=== PATIENT | male | born 1985 | race American Indian/Alaskan Native ===

== ENCOUNTER 2016-12-16 14:27 | Emergency (ER) | payer MEDICAID ==
[2016-12-16] MEDS ORDERED: EPINEPHrine 1 MG/ML SDV IM ONE (14:33)
[2016-12-16] MEDS ORDERED: diphenhydrAMINE 50 MG/ML SDV IVPUSH ONE ×2 (14:33→14:53)
--- NOTE | 2016-12-16 14:33 | EDM.PDOC ---
ED HPI GENERAL MEDICAL PROBLEM - General Chief Complaint: Allergic Reaction Stated Complaint: STUNG BY KEDAR PICKETT, [id number] Time Seen by Provider: 12/16/16 14:33 Source of Information: Reports: Patient, RN, RN Notes Reviewed History Limitations: Reports: No Limitations - History of Present Illness INITIAL COMMENTS - FREE TEXT/NARRATIVE: Arrives to ER by POV with c/o allergic reaction to hornet sting. Pt reports he was stung just [employer] once in the Rt arm and once in the Rt chest. 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 Pt states he rapidly began to develop hives around the stings, and feels a little tightness in his throat. Onset: Today, Sudden Duration: Getting Worse Location: Reports: Chest, Upper Extremity, Right Quality: Reports: Ache, Burning Severity: Moderate Improves with: Reports: None Worsens with: Reports: None Associated Symptoms: Reports: No Other Symptoms - Related Data Allergies Allergy/AdvReac Type Severity Reaction Status Date / Time haloperidol [From Haldol] Allergy Other Verified 12/16/16 14:34 Home Meds: Home Meds Buprenorphine HCl/Naloxone HCl [Suboxone 4 mg-1 mg Sl Film] 1 each SL TID [History] Past Medical History Psychiatric History: Reports: Addiction - History Comment History Comment: allergic reaction to bee stings Social & Family History - Family History Family Medical History: Noncontributory - Living Situation & Occupation Living situation: Reports: with Family ED ROS ALLERGIC REACTION - Review of Systems Review Of Systems: ROS reveals no pertinent complaints other than HPI. ED EXAM GENERAL NO PERIP PULSE - Physical Exam Exam: See Below Exam Limited By: No Limitations General Appearance: Alert, WD/WN, No Apparent Distress, Anxious Eye Exam: Bilateral Eye: Normal Inspection Ears: Normal External Exam, Normal Canal, Hearing Grossly Normal, Normal TMs Nose: Normal Inspection, Normal Mucosa, No Blood Throat/Mouth: Normal Inspection, Normal Lips, Normal Teeth, Normal Gums, Normal Oropharynx, Normal Voice, No Airway Compromise Head: Atraumatic, Normocephalic Neck: Normal Inspection, Supple, Non-Tender, Full Range of Motion Respiratory/Chest: No Respiratory Distress, Lungs Clear, Normal Breath Sounds, No Accessory Muscle Use, Chest Non-Tender Cardiovascular: Normal Peripheral Pulses, Regular Rate, Rhythm, No Edema, No Gallop, No JVD, No Murmur, No Rub GI/Abdominal: Normal Bowel Sounds, Soft, Non-Tender, No Organomegaly, No Distention, No Abnormal Bruit, No Mass Back Exam: Normal Inspection Extremities: Normal Range of Motion, No Pedal Edema, Normal Capillary Refill Neurological: Alert, Oriented, CN II-XII Intact, Normal Cognition, Normal Gait, No Motor/Sensory Deficits Psychiatric: Anxious Skin Exam: Warm, Dry, Intact, Erythema (insect sting to Rt arm and Rt upper chest with peripheral urticaria and tenderness) Course - Orders/Labs/Meds Orders: Active Orders 24 hr Category Date Time Status Peripheral IV Care [RC] . DIRECTED Care 12/16/16 14:34 Active RT Aerosol Therapy [RC] ASDIRECTED Care 12/16/16 14:34 Active Sodium Chloride 0.9% [Saline Flush] Med 12/16/16 14:34 Active 10 ml FLUSH ASDIRECTED PRN Peripheral IV Insertion Adult [OM.PC] Stat Oth 12/16/16 14:34 Ordered Medication Orders Sodium Chloride (Saline Flush) 10 ml FLUSH ASDIRECTED PRN PRN Reason: Keep Vein Open Last Admin: 12/16/16 14:51 Dose: 10 ml Meds: Medications Generic Name Dose Route Start Last Admin Trade Name Freq PRN Reason Stop Dose Admin Sodium Chloride 10 ml 12/16/16 14:34 12/16/16 14:51 Saline Flush FLUSH 10 ml ASDIRECTED PRN Administration Keep Vein Open Discontinued Medications Generic Name Dose Route Start Last Admin Trade Name Freq PRN Reason Stop Dose Admin Albuterol 2.5 mg 12/16/16 14:34 12/16/16 14:49 Proventil Neb Soln NEB 12/16/16 14:35 2.5 mg ONETIME ONE Administration Diphenhydramine HCl 50 mg 12/16/16 14:33 12/16/16 14:54 Benadryl IVPUSH 12/16/16 14:34 Not Given ONETIME ONE Diphenhydramine HCl 25 mg 12/16/16 14:53 12/16/16 14:54 Benadryl IVPUSH 12/16/16 14:54 25 mg ONETIME ONE Administration Epinephrine HCl 0.5 mg 12/16/16 14:33 12/16/16 14:44 Adrenalin 1:1000 IM 12/16/16 14:34 0.5 mg ONETIME ONE Administration Sodium Chloride 1,000 mls @ 999 mls/hr 12/16/16 14:34 12/16/16 14:46 Normal Saline IV 12/16/16 15:34 999 mls/hr .BOLUS ONE Administration Lorazepam 1 mg 12/16/16 14:37 12/16/16 14:59 Ativan IVPUSH 12/16/16 14:38 1 mg ONETIME ONE Administration Methylprednisolone Sodium Succinate 125 mg 12/16/16 14:34 12/16/16 14:49 Solu-Medrol IVPUSH 12/16/16 14:35 125 mg ONETIME ONE Administration - Re-Assessments/Exams Free Text/Narrative Re-Assessment/Exam: 12/16/16 15:42 Urticaria resolved following tx in ER. Departure - Departure Time of Disposition: 15:43 Disposition: Home, Self-Care 01 Condition: Good Clinical Impression: Sting from hornet, wasp, or bee Qualifiers: Encounter type: initial encounter Injury intent: accidental or unintentional Qualified Code(s): T63.451A - Toxic effect of venom of hornets, accidental ( unintentional), initial encounter; T63.441A - Toxic effect of venom of bees, accidental (unintentional), initial encounter; T63.461A - Toxic effect of venom of wasps, accidental (unintentional), initial encounter Anaphylactic reaction to wasp sting Qualifiers: Encounter type: initial encounter Injury intent: accidental or unintentional Qualified Code(s): T63.461A - Toxic effect of venom of wasps, accidental ( unintentional), initial encounter - Discharge Information Instructions: Bee, Wasp, or Hornet Sting Forms: ED Department Discharge Additional Instructions: Rx: Epi-Pen Follow up in clinic if needed. Return to ER if worse at any time. - My Orders Last 24 Hours: My Active Orders 12/16/16 14:34 Peripheral IV Care [RC] . DIRECTED RT Aerosol Therapy [RC] ASDIRECTED Sodium Chloride 0.9% [Saline Flush] 10 ml FLUSH ASDIRECTED PRN Peripheral IV Insertion Adult [OM.PC] Stat - Assessment/Plan Last 24 Hours: My Active Orders 12/16/16 14:34 Peripheral IV Care [RC] . DIRECTED RT Aerosol Therapy [RC] ASDIRECTED Sodium Chloride 0.9% [Saline Flush] 10 ml FLUSH ASDIRECTED PRN Peripheral IV Insertion Adult [OM.PC] Stat
[2016-12-16] MEDS ORDERED: Sodium Chloride 0.9% 10 ML Syringe FLUSH PRN (14:34)
[2016-12-16] MEDS ORDERED: Sodium Chloride 0.9% 1,000 ML IV ONE (14:34)
[2016-12-16] MEDS ORDERED: Albuterol 0.083% 2.5 MG/3 ML Neb Soln NEB ONE (14:34)
[2016-12-16] MEDS ORDERED: methylPREDNISolone Sodium Succinate 125 MG/2 ML SDV IVPUSH ONE (14:34)
[2016-12-16] MEDS ORDERED: LORazepam 2 MG/ML Syringe IVPUSH ONE (14:37)
[2016-12-16 15:57] VITALS: BP 124/66
== END 2016-12-16 15:59 | disposition home or self-care (01) ==
LOC: DL.ED 14:27
DX: T63.451A Toxic effect of venom of hornets, accidental (unintentional), initial encounter (principal); T63.441A Toxic effect of venom of bees, accidental (unintentional), initial encounter; T63.461A Toxic effect of venom of wasps, accidental (unintentional), initial encounter; Z88.8 Allergy status to other drugs, medicaments and biological substances
CPT/HCPCS: 94640; 96361; 96372; 96374; 96375; 99283; J0171; J1200; J2060; J2930; J7030; J7050; J7620

== ENCOUNTER 2017-07-22 22:24 | Emergency (ER) | payer MEDICAID ==
[2017-07-22] MEDS ORDERED: Lidocaine 2% Viscous Solution 15 ML Cup PO ONE (22:25)
[2017-07-22] MEDS ORDERED: Cephalexin 500 MG Cap PO ONE (22:25)
--- NOTE | 2017-07-22 22:26 | EDM.PDOC ---
ED HPI GENERAL MEDICAL PROBLEM - General Time Seen by Provider: 07/22/17 22:30 Source of Information: Reports: Patient History Limitations: Reports: No Limitations - History of Present Illness INITIAL COMMENTS - FREE TEXT/NARRATIVE: c/o toothache bottom left for 2 weeks, worse today after exposure to cold air. Has been trying Jose Daniel for discomfort Oral/Mouth Pain Score (Numeric/FACES): 9 - Related Data Allergies Allergy/AdvReac Type Severity Reaction Status Date / Time haloperidol [From Haldol] Allergy Other Verified 07/22/17 22:34 Home Meds: Home Meds Buprenorphine HCl/Naloxone HCl [Suboxone 4 mg-1 mg Sl Film] 1 each SL TID [History] Past Medical History Psychiatric History: Reports: Addiction - Infectious Disease History Infectious Disease History: Reports: Hepatitis C - History Comment History Comment: allergic reaction to bee stings Social & Family History - Family History Family Medical History: Noncontributory - Tobacco Use Smoking Status *Q: Current Every Day Smoker Years of Tobacco use: 15 Packs/Tins Daily: 0.2 - Recreational Drug Use Recreational Drug Use: Yes Drug Use in Last 12 Months: Yes Recreational Drug Type: Reports: Methamphetamine Recreational Drug Use Frequency: Not Used In Over 3 Months - Living Situation & Occupation Living situation: Reports: with Family ED ROS ENT - Review of Systems Review Of Systems: ROS reveals no pertinent complaints other than HPI. ED EXAM, ENT - Physical Exam Exam: See Below Exam Limited By: No Limitations General Appearance: Alert, Mild Distress Eye Exam: Bilateral Eye: EOMI Ears: Normal External Exam, Normal Canal, Normal TMs Nose: Normal Inspection Mouth/Throat: Dental Abcess, Dental Pain, Dental Tenderness, Other (poor dentation, large decay lower left posterior molar,) Head: Atraumatic, Normocephalic Neck: Lymphadenopathy (L) Respiratory/Chest: No Respiratory Distress, Lungs Clear, Normal Breath Sounds Cardiovascular: Normal Peripheral Pulses, Regular Rate, Rhythm Neurological: Alert, Oriented, Normal Cognition Psychiatric: Anxious Skin: Warm, Dry, Intact, Normal Color Course - Vital Signs Last Recorded V/S: Last Vital Signs Temp 99.4 F 07/22/17 22:32 Pulse 93 07/22/17 22:32 Resp 14 07/22/17 22:32 BP 137/81 07/22/17 22:32 Pulse Ox 99 07/22/17 22:32 Departure - Departure Time of Disposition: 22:46 Disposition: Home, Self-Care 01 Condition: Good Clinical Impression: Dental abscess, Dental caries - Discharge Information Instructions: Dental Abscess, [id number] Additional Instructions: viscous lidocaine apply 4 times daily as needed for dental pain keflex 500mg 4 times daily for one week follow up with dentist in am avoid extreme temperatures with foods or kiquids chew on opposite side may try clove oil to area to relieve dental pain
[2017-07-22 22:34] VITALS: BP 137/81
[2017-07-22] MEDS ORDERED: Cephalexin 500 MG Cap ONE (22:45)
[2017-07-22] MEDS ORDERED: Lidocaine 2% Viscous Solution 15 ML Cup ONE (22:45)
== END 2017-07-22 22:56 | disposition home or self-care (01) ==
LOC: DL.ED 22:24
DX: K02.9 Dental caries, unspecified (principal); K04.7 Periapical abscess without sinus; F17.210 Nicotine dependence, cigarettes, uncomplicated; Z88.5 Allergy status to narcotic agent
CPT/HCPCS: 99282; A9270

== ENCOUNTER 2019-08-27 01:32 | Emergency (ER) | payer MEDICAID ==
[2019-08-27 02:11] VITALS: BP 134/75; PULSE 99
--- NOTE | 2019-08-27 05:02 | EDM.PDOC ---
ED HPI GENERAL MEDICAL PROBLEM - General Chief Complaint: Genitourinary Problem Stated Complaint: STOMACH PAIN Time Seen by Provider: 08/27/19 02:00 Source of Information: Reports: Patient History Limitations: Reports: No Limitations - History of Present Illness INITIAL COMMENTS - FREE TEXT/NARRATIVE: ED with c/o difficulty urinating for past 2 weeks, denies pain. No fever or chills, states feels like something moving in stomach and in back. No pain. No nausea or vomiting. - Related Data Allergies Allergy/AdvReac Type Severity Reaction Status Date / Time haloperidol [From Haldol] Allergy Other Verified 07/22/17 22:34 Home Meds: Home Meds Buprenorphine HCl/Naloxone HCl [Suboxone 4 mg-1 mg Sl Film] 1 each SL TID [History] Past Medical History - Past Health History Medical/Surgical History: Denies Medical/Surgical History Psychiatric History: Reports: Addiction - Infectious Disease History Infectious Disease History: Reports: Hepatitis C - History Comment History Comment: allergic reaction to bee stings Social & Family History - Family History Family Medical History: Noncontributory - Caffeine Use Caffeine Use: Reports: Energy Drinks - Living Situation & Occupation Living situation: Reports: with Family ED ROS GENERAL - Review of Systems Review Of Systems: Comprehensive ROS is negative, except as noted in HPI. ED EXAM, GI/ABD - Physical Exam Exam: See Below Exam Limited By: No Limitations General Appearance: Alert, No Apparent Distress Eyes: Bilateral: EOMI Ears: Normal External Exam, Normal TMs Nose: Normal Inspection Throat/Mouth: Normal Inspection Head: Atraumatic, Normocephalic, Sinus Tenderness Respiratory/Chest: No Respiratory Distress, Lungs Clear, Normal Breath Sounds Cardiovascular: Regular Rate, Rhythm GI/Abdominal Exam: Normal Bowel Sounds, Soft, Non-Tender Back Exam: Full Range of Motion. No: CVA Tenderness (L), CVA Tenderness (R) Extremities: Normal Inspection Neurological: Alert, Oriented, Normal Cognition Psychiatric: Normal Affect Skin Exam: Warm, Dry, Intact, Normal Color Course - Vital Signs Last Recorded V/S: Last Vital Signs Temp 97.8 F 08/27/19 02:00 Pulse 99 08/27/19 02:00 Resp 19 08/27/19 02:00 BP 134/75 08/27/19 02:00 Pulse Ox 98 08/27/19 02:00 - Re-Assessments/Exams Free Text/Narrative Re-Assessment/Exam: 08/27/19 05:11 States sx feel better now, requesting to leave declines labs . Departure - Departure Time of Disposition: 02:15 Disposition: Against Medical Advice 07 Condition: Undetermined Clinical Impression: Urinary hesitancy - Discharge Information *PRESCRIPTION DRUG MONITORING PROGRAM REVIEWED*: No *COPY OF PRESCRIPTION DRUG MONITORING REPORT IN PATIENT KEVIN: No Referrals: PCP,Unobtain [Primary Care Provider] - Forms: ED Department Discharge Sepsis Event Note - Evaluation Sepsis Screening Result: No Definite Risk - Focused Exam Vital Signs: Vital Signs Temp Pulse Resp BP Pulse Ox 08/27/19 02:00 97.8 F 99 19 134/75 98 Date Exam was Performed: 08/27/19 Time Exam was Performed: 04:52
== END 2019-08-27 02:09 | disposition left against medical advice (07) ==
LOC: DL.ED 01:32
DX: R39.11 Hesitancy of micturition (principal); Z88.8 Allergy status to other drugs, medicaments and biological substances
CPT/HCPCS: 99283

== ENCOUNTER 2019-09-06 01:01 | Emergency (ER) | payer MEDICAID ==
[2019-09-06 01:07] VITALS: BP 137/90; PULSE 111
[2019-09-06] MEDS ORDERED: Clindamycin HCl 150 MG Cap PO ONE (01:12)
[2019-09-06] MEDS ORDERED: Lidocaine 2% Viscous Solution 15 ML Cup PO ONE (01:12)
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
== END 2019-09-06 01:28 | disposition home or self-care (01) ==
LOC: DL.ED 01:01
DX: K08.409 Partial loss of teeth, unspecified cause, unspecified class (principal); Z88.8 Allergy status to other drugs, medicaments and biological substances
CPT/HCPCS: 99282; A9270

== ENCOUNTER 2020-03-05 12:36 | Emergency (ER) | payer MEDICAID ==
[2020-03-05 13:08] VITALS: BP 154/103; PULSE 110
== END 2020-03-05 13:51 | disposition left against medical advice (07) ==
LOC: DL.ED 12:36
DX: Z53.21 Procedure and treatment not carried out due to patient leaving prior to being seen by health care provider (principal)

== ENCOUNTER 2020-03-11 10:47 | Emergency (ER) | payer MEDICAID ==
[2020-03-11 11:04] VITALS: BP 110/78; PULSE 81
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
== END 2020-03-11 12:35 | disposition home or self-care (01) ==
LOC: DL.ED 10:47
DX: R44.3 Hallucinations, unspecified (principal); F15.10 Other stimulant abuse, uncomplicated; U07.1 COVID-19; T54.2X1A Toxic effect of corrosive acids and acid-like substances, accidental (unintentional), initial encounter; Z88.8 Allergy status to other drugs, medicaments and biological substances
CPT/HCPCS: 80305-QW; 99283; 99284; U0002

== ENCOUNTER 2021-06-05 23:53 | Emergency (ER) | payer MEDICAID ==
[2021-06-05] MEDS ORDERED: Ibuprofen 800 MG Tab PO ONE (23:54)
[2021-06-05] MEDS ORDERED: Lidocaine 2% Viscous Solution 15 ML Cup PO ONE (23:54)
[2021-06-05] MEDS ORDERED: Amoxicillin 500 MG Cap PO ONE (23:54)
[2021-06-06 00:04] VITALS: BP 145/90; PULSE 106
[2021-06-06] MEDS ORDERED: Amoxicillin 500 MG Cap ONE (00:11)
[2021-06-06] MEDS ORDERED: Ibuprofen 800 MG Tab ONE (00:11)
[2021-06-06] MEDS ORDERED: Lidocaine 2% Viscous Solution 15 ML Cup ONE (00:11)
--- NOTE | 2021-06-06 00:16 | EDM.PDOC ---
ED HPI GENERAL MEDICAL PROBLEM - General Chief Complaint: General Stated Complaint: LEFT SIDE TOP OF MOUTH SORE Time Seen by Provider: 06/06/21 00:05 Source of Information: Reports: Patient, RN History Limitations: Reports: No Limitations - History of Present Illness INITIAL COMMENTS - FREE TEXT/NARRATIVE: ED with c/o of swelling and throbbing left upper mouth since early this afternoon. , Dental decay, had been scheduled for dental extraction in but cancelled. Prior tooth pulled in similar area 4 years ago. Tylenol last 2 hours prior.. No ibuprofen. Has not attempted to contact dentist. No fever or chills. Treatments FINANCIAL INTERN: Reports: Acetaminophen - Related Data Allergies Allergy/AdvReac Type Severity Reaction Status Date / Time haloperidol [From Haldol] Allergy Other Verified 06/06/21 00:01 Home Meds: Home Meds Buprenorphine HCl/Naloxone HCl [Suboxone 4 mg-1 mg Sl Film] 1 each SL TID 12/16/16 [History] Paliperidone [Invega] 6 mg PO BEDTIME 03/05/20 [History] Past Medical History - Past Health History Medical/Surgical History: Denies Medical/Surgical History HEENT History: Reports: None Cardiovascular History: Reports: None Respiratory History: Reports: None Gastrointestinal History: Reports: None Genitourinary History: Reports: None Musculoskeletal History: Reports: None Neurological History: Reports: None Psychiatric History: Reports: Addiction, Bipolar Endocrine/Metabolic History: Reports: None Hematologic History: Reports: None Immunologic History: Reports: None Oncologic (Cancer) History: Reports: None Dermatologic History: Reports: None - Infectious Disease History Infectious Disease History: Reports: Hepatitis C - History Comment History Comment: 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 ED EXAM, GENERAL - Physical Exam Exam: See Below Exam Limited By: No Limitations General Appearance: Alert, No Apparent Distress Eye Exam: Bilateral Eye: EOMI Ears: Normal External Exam, Hearing Grossly Normal Nose: Normal Inspection Throat/Mouth: Other (dental decay, abscess left upper posterior molar) Head: Atraumatic, Normocephalic Neck: Lymphadenopathy (L). No: Lymphadenopathy (R) Respiratory/Chest: No Respiratory Distress, Lungs Clear, Normal Breath Sounds Cardiovascular: Regular Rate, Rhythm Neurological: Alert, Oriented, Normal Cognition Psychiatric: Normal Affect Skin Exam: Warm, Dry, Normal Color Course - Vital Signs Last Recorded V/S: Last Vital Signs Temp 98.9 F 06/06/21 00:03 Pulse 106 H 06/06/21 00:03 Resp 16 06/06/21 00:03 BP 145/90 H 06/06/21 00:03 Pulse Ox 96 06/06/21 00:03 Departure - Departure Time of Disposition: 00:14 Disposition: Home, Self-Care 01 Condition: Good Clinical Impression: Dental caries, Dental abscess - Discharge Information *PRESCRIPTION DRUG MONITORING PROGRAM REVIEWED*: No *COPY OF PRESCRIPTION DRUG MONITORING REPORT IN PATIENT KEVIN: No Instructions: Dental Caries, Adult, [id number] Additional Instructions: Follow up with dentist alternate tylenol 650mg and ibuprofen 800mg every 4 hours as needed for discomfort amoxicillin 500mg one three times daily for one week viscous lidocaine apply to affected area every 2 hours as needed for discomfort chew opposite side avoid food and liquids in extreme temperatures Sepsis Event Note (ED) - Evaluation Sepsis Screening Result: No Definite Risk - Focused Exam Vital Signs: Vital Signs Temp Pulse Resp BP Pulse Ox 06/06/21 00:03 98.9 F 106 H 16 145/90 H 96
== END 2021-06-06 00:23 | disposition home or self-care (01) ==
LOC: DL.ED 23:53
DX: K04.7 Periapical abscess without sinus (principal); K02.9 Dental caries, unspecified; Z88.5 Allergy status to narcotic agent
CPT/HCPCS: 99282; A9270-GY

== ENCOUNTER 2022-11-25 13:48 | Emergency (ER) | payer BC, OTHER ==
[2022-11-25 13:59] VITALS: BP 130/89; PULSE 102
[2022-11-25] MEDS ORDERED: Diphtheria,Pertussis(Acell),Tetanus Vaccine 0.5 ML Syringe IM ONE (14:08)
[2022-11-25] MEDS ORDERED: Lidocaine 1% 5 ML VIAL INFILT ONE (14:08)
[2022-11-25] MEDS ORDERED: Bacitracin Oint 1 GM U/D Packet TOP ONE (14:32)
== END 2022-11-25 14:11 | disposition home or self-care (01) ==
LOC: DL.ED 13:48
DX: S61.211A Laceration without foreign body of left index finger without damage to nail, initial encounter (principal); Z23 Encounter for immunization; W27.0XXA Contact with workbench tool, initial encounter
CPT/HCPCS: 12001; 12002; 90471; 90715; 99282; 99283; A9270; J3490